=== PATIENT | female | born 1955 | race Caucasian/White ===

== ENCOUNTER 2024-03-24 12:23 | Inpatient (IN) | payer OTHER ==
[2024-03-24] MEDS ORDERED: KETOROLAC 30 MG/ML INJ ONE (13:32)
[2024-03-24] MEDS ORDERED: NA CHLORIDE 0.9% 1,000 ML ONE ×2 (13:32→18:23)
[2024-03-24] MEDS ORDERED: ONDANSETRON 4 MG/2 ML VIAL ONE (13:32)
[2024-03-24 14:23] LABS: Absolute Eosinophils 0.1 K/uL (0-0.5); Absolute Lymphocytes (CBC) 0.6 K/uL (0.7-4.9); Absolute Monocytes 0.4 K/uL (0.1-1.3); Absolute Neutrophil 17.6 K/uL (1.8-8.0); Basophils % 0.1 % (0-1.3); Eosinophils % 0.4 % (0-4.4); Hematocrit 28.6 % (36.0-45.0); Hemoglobin 9.8 g/dL (12.0-15.0); Lymphocytes % 3.1 % (15.3-44.8); MCH 28.9 pg (27.0-35.0); MCHC 34.2 g/dL (32.0-36.0); MCV 84.5 fL (80-100); MPV 8.6 fL (7.6-11.3); Monocytes % 2.3 % (3.3-12.3); Neutrophils % 94.1 % (41.7-73.7); Platelets 235 thou/uL (152-406); RBC Red Blood Cell Count 3.39 M/uL (3.86-4.86)
[2024-03-24 14:27] LABS: Albumin 2.1 g/dL (3.4-5.0); Albumin/Globulin Ratio 0.5 (1.1-1.8); Anion Gap 13.4 mEq/L (5.0-15.0); Bilirubin Total 0.7 mg/dL (0.2-1.0); Globulin 4.1 g/dL (2.3-3.5); PT Prothrombin Time 13.8 SECONDS (9.4-12.5); PTT, Activated Partial Thromb 29.5 SECONDS (24.3-36.9); Potassium 3.4 mEq/L (3.5-5.1); Protein, Total 6.2 g/dL (6.4-8.2); Protime INR 1.32
[2024-03-24 14:29] LABS: Specific Gravity 1.014 (1.005-1.030); Transitional Epithelial <5 /HPF (None Seen); Urine Bacteria 20-50 /HPF (<20); Urine Bilirubin NEGATIVE (Negative); Urine Blood 1+ (Negative); Urine Clarity Extremely Turbid (Clear); Urine Color Yellow (Yellow); Urine Culture Reflex Order REFLEXED; Urine Glucose TRACE (Negative); Urine Ketones NEGATIVE (Negative); Urine Microscopic Reflex YN ORDER UMIC; Urine Mucus Slight /HPF (None Seen); Urine Nitrite NEGATIVE (Negative); Urine Protein 2+ (Negative); Urine Urobilinogen Normal (Normal); Urine WBC >50 /HPF (<5)
[2024-03-24] MEDS ORDERED: CEFTRIAXONE 1000 MG/VIAL ONE (15:19)
--- NOTE | 2024-03-24 15:24 | RAD REPORT ---
EXAMINATION: CT ABDOMEN AND PELVIS WITHOUT CONTRAST CLINICAL INDICATION: Abdominal pain TECHNIQUE: CT abdomen and pelvis was performed, as per department protocol. IV contrast and oral was not administered.Axial, sagittal and coronal reconstructions were obtained. One or more of the following dose reduction techniques were used: Automated exposure control, adjustment of the mA and/o r kV according to the patient size, and/or iterative reconstruction. Unless otherwise specified, incidental findings do not require dedicated imaging follow-up. [id number]. COMPARISON: No prior exam. FINDINGS: The lack of intravenous and oral contrast limits evaluation of solid organs, vessels and bowel. Hepatic cysts. Largest 4.5 cm. Spleen is borderline enlarged Pancreas and adrenals grossly normal. 14 mm fatty lesion left kidney probably an angiomyolipoma. Stranding is present adjacent to the renal pelves and ureters bilaterally. Stranding is present withi n the perirenal spaces. Spondylosis lumbar spine Hysterectomy. No adnexal mass. No evidence of diverticulitis IMPRESSION: Stranding is present adjacent to the renal pelves and ureters bilaterally. Stranding is present withi n the perirenal spaces. These findings are nonspecific but can indicate a genitourinary tract infection
--- NOTE | 2024-03-24 15:45 | ER ---
Nurse's Notes [facility] Name: Anupama Olsen Age: 68 yrs Sex: Female : 1955 Arrival Date: 03/24/2024 Time: 12:23 Bed 13 Private MD: Diagnosis: Pyelonephritis acute;Acute kidney failure, unspecified;Severe sepsis without septic shock Presentation: 03/24 12:41 Chief complaint: On Cipro day 2 for UTI, c/o fever, chills, nausea, and headache today. hb Coronavirus screen: At this time, the client does not indicate any symptoms associated with coronavirus-19. Ebola Screen: No symptoms or risks identified at this time. Initial Sepsis Screen: Does the patient meet any 2 criteria? HR > 90 bpm. No. Patient's initial sepsis screen is negative. Does the patient have a suspected source of infection? No. Patient's initial sepsis screen is negative. Risk Assessment: Do you want to hurt yourself or someone else? Patient reports no desire to harm self or others. Onset of symptoms was March 19, 2024. 12:41 Method Of Arrival: Ambulatory hb 12:41 Acuity: JOE 3 hb Historical: - Allergies: 12:43 No Known Allergies; hb - PMHx: 12:43 Hypertension; hb 12:44 Asthma; hb - PSHx: 12:43 Hysterectomy; hb - Immunization history:: Adult Immunizations up to date. - Infectious Disease History:: Denies. - Social history:: Smoking status: Patient denies any tobacco usage or history of. Screenin:19 [facility] ED Fall Risk Assessment (Adult) History of falling in the last 3 months, kj2 including since admission No falls in past 3 months (0 pts) Confusion or Disorientation No (0 pts) Intoxicated or Sedated No (0 pts) Impaired Gait No (0 pts) Mobility Assist Device Used No (0 pt) Altered Elimination No (0 pt) Score/Fall Risk Level 0 - 2 = Low Risk Maintained a safe environment, Hourly rounding (assess needs \T\ fall precautionary measures) done. Abuse screen: Denies threats or abuse. Denies injuries from another. Nutritional screening: No deficits noted. Tuberculosis screening: No symptoms or risk factors identified. Assessment: 13:18 General: Appears in no apparent distress. uncomfortable, Behavior is calm, cooperative. kj2 Pain: Complains of pain in pelvic Pain currently is 6 out of 10 on a pain scale. Neuro: Level of Consciousness is awake, alert, Oriented to person, place, time, situation. Cardiovascular: Patient's skin is warm and dry. Respiratory: Airway is patent Respiratory effort is even, unlabored. GI: No signs and/or symptoms were reported involving the gastrointestinal system. : No signs and/or symptoms were reported regarding the genitourinary system. 14:17 Reassessment: Patient appears in no apparent distress at this time. Patient and/or kj2 family updated on plan of care and expected duration. Pain level reassessed. Patient is alert, oriented x 3, equal unlabored respirations, skin warm/dry/pink. 15:15 Reassessment: Patient appears in no apparent distress at this time. Patient and/or kj2 family updated on plan of care and expected duration. Pain level reassessed. Patient is alert, oriented x 3, equal unlabored respirations, skin warm/dry/pink. 16:00 Reassessment: Patient appears in no apparent distress at this time. Patient and/or kj2 family updated on plan of care and expected duration. Pain level reassessed. Patient is alert, oriented x 3, equal unlabored respirations, skin warm/dry/pink. 17:00 Reassessment: Patient appears in no apparent distress at this time. Patient and/or kj2 family updated on plan of care and expected duration. Pain level reassessed. Patient is alert, oriented x 3, equal unlabored respirations, skin warm/dry/pink. 18:17 Reassessment: Patient appears in no apparent distress at this time. Patient and/or kj2 family updated on plan of care and expected duration. Pain level reassessed. Patient is alert, oriented x 3, equal unlabored respirations, skin warm/dry/pink. Vital Signs: 12:41 BP 102 / 71; Pulse 91; Resp 16; Temp 99.5(O); Pulse Ox 99% on R/A; Weight 79.83 kg; hb Height 5 ft. 4 in. ; Pain 8/10; 13:30 BP 104 / 72; Pulse 92; Resp 20; Pulse Ox 100% on R/A; kj2 14:30 BP 104 / 76; Pulse 88; Resp 20; Pulse Ox 100% on R/A; kj2 15:15 BP 106 / 60; Pulse 76; Resp 18; Pulse Ox 98% ; kj2 16:00 BP 110 / 74; Pulse 78; Resp 18; Pulse Ox 99% on R/A; kj2 17:00 BP 121 / 74; Pulse 72; Resp 18; Pulse Ox 100% on R/A; kj2 18:16 BP 118 / 71; Pulse 77; Resp 20; Temp 99.9; Pulse Ox 100% ; kj2 12:41 Body Mass Index 30.21 (79.83 kg, 162.56 cm) hb 12:41 Pain Scale: Adult hb ED Course: 12:25 Patient arrived in ED. im 12:34 Carolina Carmona FNP-C is PHCP. kb 12:34 Domenico Rojas MD is Attending Physician. kb 12:43 Triage completed. hb 12:44 Arm band placed on. hb 13:17 Ese Lynch, RN is Primary Nurse. kj2 13:19 Patient has correct armband on for positive identification. Bed in low position. Call kj2 light in reach. Provided Education on: call light. 13:19 No provider procedures requiring assistance completed. kj2 13:45 Inserted saline lock: 20 gauge in left antecubital area, using aseptic technique. Blood kj2 collected. Flushed with 10 mL NS. 14:14 Radiology exam delayed due to lab results not completed at this time. (BUN/Creatinine) nj IV insertion attempt and/or patient not having appropriate IV at this time. 14:14 Blood Culture Adult (2) Sent. kj2 14:14 Lactate w/ 2H reflex if indic. Sent. kj2 14:14 Protime (+inr) Sent. kj2 14:14 Ptt, Activated Sent. kj2 14:55 Abdomen In Process Unspecified. EDMS 15:44 Duane Hammond is Hospitalizing Provider. kb 20:12 Patient admitted, IV remains in place. ha1 Administered Medications: 13:45 Drug: TORadol - Ketorolac IVP 15 mg IVP once Route: IVP; Site: left antecubital; kj2 16:02 Follow up: Response: No adverse reaction kj2 13:45 Drug: Ondansetron IVP 4 mg IVP once; over 2 minutes Route: IVP; Site: left antecubital; kj2 16:01 Follow up: Response: No adverse reaction kj2 13:45 Drug: NS 0.9% IV 1000 ml IV at 1 bolus Per protocol; to be given as a bolus over 60 kj2 minutes Route: IV; Rate: 1 bolus; Site: left antecubital; 16:02 Follow up: IV Status: Completed infusion; IV Intake: 1000ml kj2 15:27 Drug: Rocephin IV 1 grams IV at calculated rate once; Given slow IV push per pharmacy kj2 instructions Route: IV; Rate: calculated rate; Site: left antecubital; 16:01 Follow up: Response: No adverse reaction kj2 19:00 Follow up: Response: No adverse reaction; IV Status: Completed infusion; IV Intake: [id number] Medication: 20:12 VIS not applicable for this client. ha1 Intake: 16:02 IV: 1000ml; Total: 1000ml. kj2 19:00 IV: 50ml; Total: 1050ml. ha1 Outcome: 15:45 Decision to Hospitalize by Provider. kb 20:11 Admitted to Med/surg accompanied by tech, via wheelchair, room 224, with chart, ha 20:11 Condition: stable 20:11 Instructed on the need for admit, Demonstrated understanding of instructions, 20:13 Patient left the ED. ha1 Signatures: Dispatcher [employer] EDMS Carolina Carmona, GRADE SCHOOL TEACHER-C GRADE SCHOOL TEACHER-CkAshley Caballero, RN RN Bryce Brooks Heidy, RN RN ha1 Aydee Gill Krystal, RN RN kj2 Corrections: (The following items were deleted from the chart) 14:44 14:14 To radiology for Abdomen Pelvis W Con+CT.RAD.BRZ. kj2 EDMS
--- NOTE | 2024-03-24 15:45 | EDPHYS ---
Physician Documentation [facility] Name: Anupama Olsen Age: 68 yrs Sex: Female : 1955 Arrival Date: 03/24/2024 Time: 12:23 Bed 13 Private MD: ED Physician Domenico Rojas HPI: 03/24 17:35 This 68 yrs old Female presents to ER via Ambulatory with complaints of Urinary Problem.kb 17:35 Pt is a 68 year old female who presents for dysuria for 7 days with fever, chills, kb flank pain, low blood pressure, nausea and decreased appetite that started 5 days ago. Pt was seen at 4 days ago and started on Macrobid, then spoke with Dr Whitten (PCP) 3 days ago and was put on Cipro. States symptoms are not improving. Reports temp up to 103. . Historical: - Allergies: 12:43 No Known Allergies; hb - PMHx: 12:43 Hypertension; hb 12:44 Asthma; hb - PSHx: 12:43 Hysterectomy; hb - Immunization history:: Adult Immunizations up to date. - Infectious Disease History:: Denies. - Social history:: Smoking status: Patient denies any tobacco usage or history of. ROS: 17:34 Constitutional: As per HPI kb Exam: 16:11 Constitutional: This is a well developed, well nourished patient who is awake, alert, kb and in no acute distress. Head/Face: Normocephalic, atraumatic. ENT: Moist Mucous membranes Cardiovascular: Regular rate Respiratory: Respirations even and unlabored. No increased work of breathing. Talking in full sentences Skin: Warm, dry with normal turgor. Normal color. MS/ Extremity: Pulses equal, no cyanosis. Neurovascular intact. Full, normal range of motion. Neuro: Awake and alert, GCS 15, oriented to person, place, time, and situation. 16:11 Abdomen/GI: Inspection: abdomen appears normal, Bowel sounds: normal, Palpation: soft, in all quadrants, mild abdominal tenderness, in all quadrants, 16:11 Back: CVA tenderness, that is moderate, is noted on the left, 16:12 ECG was reviewed by the Attending Physician. kb Vital Signs: 12:41 BP 102 / 71; Pulse 91; Resp 16; Temp 99.5(O); Pulse Ox 99% on R/A; Weight 79.83 kg; hb Height 5 ft. 4 in. ; Pain 8/10; 13:30 BP 104 / 72; Pulse 92; Resp 20; Pulse Ox 100% on R/A; kj2 14:30 BP 104 / 76; Pulse 88; Resp 20; Pulse Ox 100% on R/A; kj2 15:15 BP 106 / 60; Pulse 76; Resp 18; Pulse Ox 98% ; kj2 16:00 BP 110 / 74; Pulse 78; Resp 18; Pulse Ox 99% on R/A; kj2 17:00 BP 121 / 74; Pulse 72; Resp 18; Pulse Ox 100% on R/A; kj2 18:16 BP 118 / 71; Pulse 77; Resp 20; Temp 99.9; Pulse Ox 100% ; kj2 12:41 Body Mass Index 30.21 (79.83 kg, 162.56 cm) hb 12:41 Pain Scale: Adult hb MDM: 12:34 Medical Screening Exam initiated kb 17:34 Differential diagnosis: UTI, pyelonephritis. Data reviewed: vital signs, nurses notes. kb Consideration of Admission/Observation Patient was admitted/placed on observation. Escalation of care including admission/observation considered. Management of patient was discussed with the following: Hospitalist: Hospitalist team. Pt accepted for admission under Dr Hammond. Historians other than the Patient: Spouse/Significant Other: . Counseling: I had a detailed discussion with the patient and/or guardian regarding the historical points, exam findings, and any diagnostic results supporting the discharge/admit diagnosis, lab results, radiology results, the need for further work-up and treatment in the hospital. ED course: sepsis reevaluation complete. 03/24 12:49 Order name: CBC with Diff; Complete Time: 16:32 kb 03/24 12:49 Order name: CMP; Complete Time: 14:29 kb 03/24 12:49 Order name: Lipase; Complete Time: 14:29 kb 03/24 12:49 Order name: Urinalysis w/ reflexes; Complete Time: 14:30 kb 03/24 12:49 Order name: Blood Culture Adult (2) kb 03/24 12:49 Order name: Lactate w/ 2H reflex if indic.; Complete Time: 14:41 kb 03/24 12:49 Order name: Protime (+inr); Complete Time: 14:29 kb 03/24 12:49 Order name: Ptt, Activated; Complete Time: 14:29 kb 03/24 14:32 Order name: Urine Culture EDMS 03/24 16:31 Order name: Urinalysis w/ reflexes EDMS 03/24 16:31 Order name: Basic Metabolic Panel EDMS 03/24 16:31 Order name: Basic Metabolic Panel EDMS 03/24 16:31 Order name: Basic Metabolic Panel EDMS 03/24 16:31 Order name: Basic Metabolic Panel EDMS 03/24 16:31 Order name: Basic Metabolic Panel EDMS 03/24 16:31 Order name: Basic Metabolic Panel EDMS 03/24 16:31 Order name: CBC with Automated Diff EDMS 03/24 16:31 Order name: CBC with Automated Diff EDMS 03/24 16:31 Order name: CBC with Automated Diff EDMS 03/24 16:31 Order name: CBC with Automated Diff EDMS 03/24 16:31 Order name: Manual Differential; Complete Time: 16:32 EDMS 03/24 16:32 Order name: CBC with Automated Diff EDMS 03/24 16:32 Order name: CBC with Automated Diff EDMS 03/24 16:32 Order name: Magnesium EDMS 03/24 16:32 Order name: Magnesium EDMS 03/24 16:32 Order name: Magnesium EDMS 03/24 16:32 Order name: Magnesium EDMS 03/24 16:32 Order name: Magnesium EDMS 03/24 16:32 Order name: Magnesium EDMS 03/24 16:32 Order name: Phosphorus EDMS 03/24 16:32 Order name: Phosphorus EDMS 03/24 16:32 Order name: Phosphorus EDMS 03/24 16:32 Order name: Phosphorus EDMS 03/24 16:32 Order name: Phosphorus EDMS 03/24 16:32 Order name: Phosphorus EDMS 03/24 14:44 Order name: Abdomen ; Complete Time: 15:26 EDMS 03/24 12:49 Order name: EKG; Complete Time: 12:50 kb 03/24 12:49 Order name: IV Saline Lock; Complete Time: 14:14 kb 03/24 12:49 Order name: Labs collected and sent; Complete Time: 14:15 kb 03/24 12:49 Order name: Cardiac monitoring; Complete Time: 13:48 kb 03/24 12:49 Order name: EKG - Nurse/Tech; Complete Time: 13:48 kb 03/24 12:49 Order name: O2 Per Protocol; Complete Time: 13:48 kb 03/24 12:49 Order name: O2 Sat Monitoring; Complete Time: 13:48 kb EC:12 Rate is 78 beats/min. Rhythm is regular. QRS [place] is Normal. VA interval is normal at kb 186 msec. QRS interval is normal at 90 msec. QT interval is normal at 460 msec. Administered Medications: 13:45 Drug: TORadol - Ketorolac IVP 15 mg IVP once Route: IVP; Site: left antecubital; kj2 16:02 Follow up: Response: No adverse reaction kj2 13:45 Drug: Ondansetron IVP 4 mg IVP once; over 2 minutes Route: IVP; Site: left antecubital; kj2 16:01 Follow up: Response: No adverse reaction kj2 13:45 Drug: NS 0.9% IV 1000 ml IV at 1 bolus Per protocol; to be given as a bolus over 60 kj2 minutes Route: IV; Rate: 1 bolus; Site: left antecubital; 16:02 Follow up: IV Status: Completed infusion; IV Intake: 1000ml kj2 15:27 Drug: Rocephin IV 1 grams IV at calculated rate once; Given slow IV push per pharmacy kj2 instructions Route: IV; Rate: calculated rate; Site: left antecubital; 16:01 Follow up: Response: No adverse reaction kj2 19:00 Follow up: Response: No adverse reaction; IV Status: Completed infusion; IV Intake: [id number] Disposition: 03/25 07:03 Co-signature as Attending Physician, Domenico Rojas MD I reviewed the patient's care rt provided by the Advanced Practice Provider and agree with the diagnosis and treatment plan. Disposition Summary: 03/24/24 15:45 Hospitalization Ordered Notes: Hospitalization Status: Inpatient Admission kb Provider: Duane Hammond Location: Telemetry/MedSurg (Inpatient) kb Condition: Stable kb Problem: new kb Symptoms: are unchanged kb Bed/Room Type: Standard kb Room Assignment: 224(03/24/24 18:55) eb Diagnosis - Pyelonephritis acute kb - Acute kidney failure, unspecified kb - Severe sepsis without septic shock kb Forms: - Medication Reconciliation Form kb - SBAR form kb - Leadership Thank You Letter kb Signatures: Dispatcher [employer] EDMS Carolina Carmona, EQUIPMENT TESTER-C EQUIPMENT TESTER-Ashley Ocampo, RN RN Jacqueline Prater Ryan, MD MD rt Ese Lynch RN RN kj2 La Castro RN ha1 Corrections: (The following items were deleted from the chart) 03/24 14:44 12:49 Abdomen Pelvis W Con+CT.RAD.BRZ ordered. EDMS EDMS 18:55 15:45 kb carol
[2024-03-24 16:31] LABS: Band Neutrophils 14 % (0-1); Blood Morphology Comment NOT SEEN (NOT SEEN); Differential Total Cells Count 100; Lymphocytes 4 % (15-42); Monocytes 2 % (0-10); Platelet Estimate ADEQ; Segmented Neutrophils 80 % (40-80); Toxic Granulation PRESENT
--- NOTE | 2024-03-24 16:40 | P.HP ---
Certification for Inpatient Patient admitted to: Inpatient With expected LOS: >2 Midnights Practitioner: I am a practitioner with admitting privileges, knowledge of patient current condition, hospital course, and medical plan of care. Services: Services provided to patient in accordance with Admission requirements found in Title 42 Section 412.3 of the Code of Federal Regulations Patient History Date of Service: 03/24/24 Reason for admission: Right pyelonephritis History of Present Illness: Anupama Olsen is a 68 year old female with Pmhx HTN, HLD, and asthma who presents to the ED with complaints of dysuria and abdominal pain since last week. She tried nitrofurantoin and ciprofloxacin from her doctor and an urgent care with no relief. Laboratory evaluation WBC 18.7, H&H 9.8/28.6, sodium 132, potassium 3.4, BUN/creatinine 41/1 3.03, GFR 16, serum glucose 166, UA reveals infectious process. Initial vitals Stranding is present adjacent to the renal pelves and ureters bilaterally. Stranding is present within the perirenal spaces. These findings are nonspecific but can indicate a genitourinary tract infection CT abdomen pelvis reports "Stranding is present adjacent to the renal pelves and ureters bilaterally. Stranding is present within the perirenal spaces. These findings are nonspecific but can indicate a genitourinary tract infection." Anupama will be admitted to hospitalist service for further treatment of right pyelonephritis.. - Past Medical/Surgical History -: Asthma -: Hypertension -: Sleep apnea Past Surgical History: Reviewed- Non-Contributory - Family History Family History: Reviewed- Non-Contributory - Social History Smoking Status: Never smoker Alcohol use: No CD- Drugs: No Review of Systems Other: per HPI Physical Examination - Physical Exam General: Alert, In no apparent distress, Oriented x3 Neck: Supple, JVD not distended Respiratory: Clear to auscultation bilaterally, Normal air movement Cardiovascular: No edema Capillary refill: <2 Seconds Gastrointestinal: Normal bowel sounds, Soft and benign, Tenderness Musculoskeletal: No clubbing Integumentary: No rashes Neurological: Normal speech, Normal tone - Studies Laboratory Data (last 24 hrs) 03/24/24 03/24/24 03/24/24 13:50 13:50 13:50 WBC 18.70 H Hgb 9.8 L Hct 28.6 L Plt Count 235 PT 13.8 H INR 1.32 APTT 29.5 Sodium 132 L Potassium 3.4 L BUN 41 H Creatinine 3.03 H Glucose 166 H Total Bilirubin 0.7 AST 15 ALT 17 Alkaline Phosphatase 125 H Lipase 9 L Assessment and Plan - Plan Assessment and plan Sepsis secondary to right pyelonephritis -Sepsis criteria WBC 18, heart rate 91, UTI -CT abd/pelvis reports "Stranding is present adjacent to the renal pelves and ureters bilaterally. Stranding is present within the perirenal spaces. These findings are nonspecific but can indicate a genitourinary tract infection." -Sepsis reassessment complete -Rocephin given in the AM and will continue on the floor -Follow urine culture -2 L normal saline given in the ED, 2 L IV fluids on the floor KERMIT -BUN/creatinine 41/3.03, GFR 16 -IV fluids -Monitor labs in the a.m. HTN Asthma -Continue home medications DVT PPx heparin Full code LOS 2 days Discharge Plan: Home Plan to discharge in: 48 Hours - Advance Directives Does patient have a Living Will: No Does patient have a Durable POA for Healthcare: No
[2024-03-24] MEDS: HEPARIN 5000 UNIT/ML 1 ML VIAL SQ SCH (17:00)
[2024-03-24] MEDS: NA CHLORIDE 0.9% 1,000 ML IV SCH (17:00)
[2024-03-24] MEDS ORDERED: ACETAMINOPHEN 325 MG TABLET ONE (18:23)
[2024-03-24] MEDS ORDERED: HEPARIN 5000 UNIT/ML 1 ML VIAL ONE (18:23)
[2024-03-24] MEDS: ACETAMINOPHEN 325 MG TABLET PO PRN (18:39)
[2024-03-25 09:04] LABS: Absolute Eosinophils 0.1 K/uL (0-0.5); Absolute Lymphocytes (CBC) 0.9 K/uL (0.7-4.9); Absolute Monocytes 0.3 K/uL (0.1-1.3); Absolute Neutrophil 10.3 K/uL (1.8-8.0); Basophils % 0.1 % (0-1.3); Eosinophils % 0.7 % (0-4.4); Hematocrit 24.4 % (36.0-45.0); Hemoglobin 8.6 g/dL (12.0-15.0); Lymphocytes % 7.4 % (15.3-44.8); MCH 29.8 pg (27.0-35.0); MCHC 35.3 g/dL (32.0-36.0); MCV 84.3 fL (80-100); MPV 8.8 fL (7.6-11.3); Monocytes % 2.9 % (3.3-12.3); Neutrophils % 88.9 % (41.7-73.7); Platelets 195 thou/uL (152-406); RBC Red Blood Cell Count 2.89 M/uL (3.86-4.86); Red Cell Distribution Width 15.3 % (12.1-15.2)
[2024-03-25 09:24] LABS: Magnesium 1.6 mg/dL (1.6-2.4); Phosphorus 3.6 mg/dL (2.5-4.9)
[2024-03-25] MEDS: CEFTRIAXONE 1,000 MG in NA CHLORIDE 0.9% 50 ML IVPB SCH (09:58)
--- NOTE | 2024-03-25 17:17 | P.PN ---
Date of Service: 03/25/24 Subjective Awake, abdominal pain resolving Fever this afternoon, WBC decreased this morning ROS 10 point ROS as noted above, otherwise negative Physical Exam General: Alert and Oriented x3, NAD Neck: Supple, JVD not distended Respiratory: Clear to auscultation bilaterally, Normal air movement Cardiovascular: No edema Capillary refill: <2 Seconds Gastrointestinal: Active bowel sounds, Soft on palpation, Tenderness-improving Musculoskeletal: No clubbing Integumentary: No rashes Neurological: Normal speech, Normal tone Vitals Reviewed Problem list Sepsis secondary to right pyelonephritis Leukocytosis- improved Febrile KERMIT HTN Asthma 40 mm fatty lesion left kidney, suspect angiomyolipoma Hepatic cyst Spondylosis lumbar spine Assessment and Plan Sepsis secondary to right pyelonephritis Febrile Leukocytosis- improved -Sepsis criteria WBC 18, heart rate 91, UTI, now with temp 101.2 -CT abd/pelvis reports "Stranding is present adjacent to the renal pelves and ureters bilaterally. Stranding is present within the perirenal spaces. These findings are nonspecific but can indicate a genitourinary tract infection." -Febrile this afternoon, redraw lactic acid -Sepsis reassessment complete -Continue Rocephin -Follow urine culture-no growth to date -Blood culture no growth to date -2 L normal saline given in the ED, 2 L IV fluids on the floor ordered to start last night -additional normal saline KERMIT -BUN/creatinine 52/3.13, GFR 16 -IV fluids -Monitor labs in the a.m. HTN Asthma -Continue home medications 40 mm fatty lesion left kidney, suspect angiomyolipoma Hepatic cyst Spondylosis lumbar spine -Follow-up outpatient DVT PPx heparin Full code LOS 2 days Discharge Plan: Home Plan to discharge in: 48 Hours
[2024-03-25] MEDS: VANCOMYCIN 1 GM in NA CHLORIDE 0.9% 250 ML IVPB SCH (18:09)
[2024-03-25] MEDS: VANCOMYCIN 1.5 GM in NA CHLORIDE 0.9% 500 ML IVPB ONE (19:00)
[2024-03-25] MEDS: Meropenem 1,000 MG in NA CHLORIDE 0.9% 100 ML IV SCH (21:14)
[2024-03-25] MEDS: POTASSIUM 25 MEQ EFFERV TAB PO ONE (21:15)
[2024-03-25] MEDS: VANCOMYCIN 500 MG/VIAL ONE (22:01)
[2024-03-25] MEDS: VANCOMYCIN 1 GM/VIAL ONE (22:01)
[2024-03-25] MEDS: NA CHLORIDE 0.9% 500 ML ONE (22:03)
[2024-03-26] MEDS: NA CHLORIDE 0.9% 1,000 ML IV SCH (02:56)
[2024-03-26 08:44] LABS: Absolute Eosinophils 0.1 K/uL (0-0.5); Absolute Lymphocytes (CBC) 0.9 K/uL (0.7-4.9); Absolute Monocytes 0.5 K/uL (0.1-1.3); Absolute Neutrophil 4.7 K/uL (1.8-8.0); Basophils % 0.2 % (0-1.3); Eosinophils % 1.4 % (0-4.4); Hematocrit 24.7 % (36.0-45.0); Hemoglobin 8.7 g/dL (12.0-15.0); Lymphocytes % 15.3 % (15.3-44.8); MCH 29.4 pg (27.0-35.0); MCV 83.9 fL (80-100); MPV 7.8 fL (7.6-11.3); Monocytes % 7.7 % (3.3-12.3); Neutrophils % 75.4 % (41.7-73.7); Platelets 236 thou/uL (152-406); RBC Red Blood Cell Count 2.95 M/uL (3.86-4.86); Red Cell Distribution Width 15.4 % (12.1-15.2)
[2024-03-26 09:02] LABS: Anion Gap 10.6 mEq/L (5.0-15.0); Magnesium 1.9 mg/dL (1.6-2.4); Phosphorus 4.3 mg/dL (2.5-4.9); Potassium 3.6 mEq/L (3.5-5.1)
[2024-03-26] MEDS: FLUCONAZOLE 200mg IVPB 200 MG/100 ML BAG IV SCH (12:13)
--- NOTE | 2024-03-26 12:29 | RAD REPORT ---
EXAM: Chest Single View HISTORY: shortness of breath COMPARISON: 08/18/2022 FINDINGS: LUNGS/PLEURA: The lungs are clear. No pleural effusions or pneumothorax. No pulmonary edema. MEDIASTINUM: The mediastinal silhouette is within normal limits. CARDIAC: The cardiac silhouette is within normal limits. UPPER ABDOMEN: No significant abnormality. BONES: No acute abnormality. LINES/TUBES/OTHER: N/A IMPRESSION: No evidence of acute cardiopulmonary disease.
--- NOTE | 2024-03-26 15:36 | P.PN ---
Date of Service: 03/26/24 Subjective Awake and ambulating in her room remains febrile c/o shortness of breath, CXR with no acute findings on room air D-dimer pending ROS 10 point ROS as noted above, otherwise negative Physical Exam General: AAO x3, NAD Neck: Supple, JVD not distended Respiratory: Clear to auscultation bilaterally, Normal air movement, on RA Cardiovascular: No edema Capillary refill: <2 Seconds Gastrointestinal: normal Active bowel sounds, Soft on palpation Musculoskeletal: No clubbing Integumentary: No rashes Neurological: Normal speech, Normal tone Vitals Reviewed Problem list Sepsis secondary to right pyelonephritis Leukocytosis- improved Febrile KERMIT HTN Asthma 40 mm fatty lesion left kidney, suspect angiomyolipoma Hepatic cyst Spondylosis lumbar spine Assessment and Plan Sepsis secondary to right pyelonephritis Febrile Leukocytosis- improved -Sepsis criteria WBC 18, heart rate 91, UTI, now with temp 101.2 -CT abd/pelvis reports "Stranding is present adjacent to the renal pelves and ureters bilaterally. Stranding is present within the perirenal spaces. These findings are nonspecific but can indicate a genitourinary tract infection." -Febrile this this morning , redraw lactic acid 0.9 -Sepsis reassessment complete - Rocephin stopped, started merrem and Vancomycin 03/25, added diflucan 03/26 -Follow urine culture-no growth to date -Blood culture no growth to date -2 L normal saline given in the ED, 2 L IV fluids on the floor ordered to start last night -continue normal saline today KERMIT -BUN/creatinine 53/2.55, GFR 20 -IV fluids -Monitor labs in the a.m. -consulted Nephrology HTN Asthma -Continue home medications 40 mm fatty lesion left kidney, suspect angiomyolipoma Hepatic cyst Spondylosis lumbar spine -Follow-up outpatient DVT PPx heparin Full code LOS 2 days Discharge Plan: Home Plan to discharge in: 48 Hours <Dianne Tenroio - Last Filed: 03/26/24 15:37> Patient seen and examined, plan of care discussed with nephrology. Patient experience intermittent fever. Urine culture did not show any growth. Blood cultures negative. Patient took antibiotics before presentation. Given intermittent fever on Rocephin, antibiotics changed to IV meropenem and vancomycin. Leukocytosis resolved, KERMIT improved. Monitor for clinical improvement. Monitor CBC and renal function. <molly foss - Last Filed: 03/26/24 19:28>
[2024-03-26 17:04] LABS: SARS-CoV-2 Antigen CONTROL BLUE LINE VIS/BG OK
[2024-03-26 17:05] LABS: SARS-CoV-2 Antigen Rapid Res Negative (Negative)
[2024-03-26] MEDS ORDERED: HEPARIN/D5W 25,000 UNIT/500 ML BAG IV SCH (18:00)
[2024-03-26] MEDS: POTASSIUM CL SA 10 MEQ TAB PO ONE (21:57)
[2024-03-27 01:06] LABS: PT Prothrombin Time 12.8 SECONDS (9.4-12.5); Protime INR 1.22
--- NOTE | 2024-03-27 04:41 | CON ---
Date of Consultation: 03/26/2024 History Of Present Illness: The patient was admitted for right pyelonephritis. She was found to have acute kidney injury. She remains nonoliguric. Nephrology consultation is requested for acute kidney injury. The patient is a 68-year-old woman with past medical history of hypertension, hyperlipidemia, asthma, who presented to emergency department with complaints of dysuria and abdominal pain at least for one week prior to admission. She took nitrofurantoin and ciprofloxacin, and she was seen by her physician and subsequently Urgent Care, with no improvement of her symptoms. On arrival to emergency room, she was complaining of high-grade fever, back pain. She denied hematuria, incomplete voiding. Blood work showed BUN of 41, creatinine 3.03, GFR 16, serum glucose 166. Urinalysis revealed leukocyturia. Findings of the CT scan showed workup consistent with pyelonephritis. The patient denies history of kidney stones, hematuria. She had similar episodes of pyelonephritis at least 18 to 20 years ago. Past Medical History: Asthma, hypertension, sleep apnea. Family History: Noncontributory. Past Surgical History: Noncontributory. Social History: Never smoker. Alcohol, denies. Drugs, denies. Review of Systems: Constitutional: Had fever and chills. Eyes: Denies vision changes. Ears, Nose, Mouth, and Throat: Denies sore throat, earache. Respiratory: Denies PND, orthopnea. Cardiovascular: Denies syncope, palpitation. GI: Denies nausea, vomiting, melena, hematemesis. : She has back pain, and she denies hematuria, although she had dysuria. All other systems reviewed and all are negative. Physical Examination: General: Not in acute distress. Alert and oriented x3. Normal affect. Neck: Supple. No JVD. No bruits. Respiratory: Clear to auscultation bilaterally. Normal air movement. Cardiovascular: S1, S2. No pericardial friction rub. Abdomen: Soft, benign, nontender. Extremities: No edema. No clubbing. No cyanosis. Laboratory Work: WBC 18.7, hemoglobin 9.8, platelet count 235,000, INR 1.32, PT 13.8, APTT 29.5. Sodium 132, potassium 3.4, BUN 41, creatinine 3.03, glucose 166, AST 16, ALT 17, lipase 9, and AP 125. Impression And Plan: 1. Sepsis. WBC 18, heart rate 91. The patient has urinary tract infection. CT scan of abdomen and pelvis without contrast showed stranding present and adjacent to the renal pelvis and ureters bilaterally. Continue antibiotics. The patient will need a Urology evaluation when she completes treatment for urinary tract infection. 2. Sepsis. Monitor blood pressure closely. Continue broad-spectrum antibiotics and re-evaluate urine culture and blood cultures. 3. Acute kidney injury. The patient was treated with IV fluids and received bolus of 2 L normal saline in the emergency room. Continue to monitor renal panel and blood pressure. Continue IV fluids for acute kidney injury and fluid management for sepsis EB/MODL Voice ID: [id number] Report ID: [id number] MTDD
[2024-03-27 06:56] LABS: Absolute Eosinophils 0.1 K/uL (0-0.5); Absolute Lymphocytes (CBC) 1.2 K/uL (0.7-4.9); Absolute Monocytes 0.7 K/uL (0.1-1.3); Absolute Neutrophil 4.1 K/uL (1.8-8.0); Basophils % 0.4 % (0-1.3); Eosinophils % 1.9 % (0-4.4); Hematocrit 25.1 % (36.0-45.0); Hemoglobin 8.6 g/dL (12.0-15.0); Lymphocytes % 18.9 % (15.3-44.8); MCHC 34.1 g/dL (32.0-36.0); MPV 7.9 fL (7.6-11.3); Monocytes % 11.1 % (3.3-12.3); Neutrophils % 67.7 % (41.7-73.7); Platelets 223 thou/uL (152-406); RBC Red Blood Cell Count 2.95 M/uL (3.86-4.86); Red Cell Distribution Width 15.7 % (12.1-15.2)
[2024-03-27 07:12] LABS: Anion Gap 11.5 mEq/L (5.0-15.0); Magnesium 1.8 mg/dL (1.6-2.4); Phosphorus 3.7 mg/dL (2.5-4.9); Potassium 3.5 mEq/L (3.5-5.1)
[2024-03-27 07:51] LABS: Specific Gravity 1.008 (1.005-1.030); Sqamous Epithelial None Seen /HPF (None Seen); Urine Bacteria None Seen /HPF (<20); Urine Bilirubin NEGATIVE (Negative); Urine Blood Trace (Negative); Urine Clarity Clear (Clear); Urine Color Colorless (Yellow); Urine Culture Reflex Order REFLEXED; Urine Glucose NEGATIVE (Negative); Urine Ketones NEGATIVE (Negative); Urine Microscopic Reflex YN ORDER UMIC; Urine Nitrite NEGATIVE (Negative); Urine Protein NEGATIVE (Negative); Urine RBC <5 /HPF (None Seen); Urine Urobilinogen Normal (Normal)
--- NOTE | 2024-03-27 09:55 | P.PN ---
Date of Service: 03/27/24 Subjective febrile yesterday and c/o nausea this morning, nausea is less, tolerating heparin gtt VQ scan negative for PE afebrile overnight will continue IV antibiotics ROS 10 point ROS as noted above, otherwise negative Physical Exam General: Alert and oriented x4, NAD Neck: Supple, JVD not distended Respiratory: Clear to auscultation bilaterally, Normal air movement, on RA Cardiovascular: No edema Capillary refill: <2 Seconds Gastrointestinal: normal Active bowel sounds, Soft on palpation, nontender Musculoskeletal: No clubbing Integumentary: No rashes Neurological: Normal speech, Normal tone Vitals Reviewed Problem list Sepsis secondary to right pyelonephritis Leukocytosis- improved Febrile KERMIT HTN Asthma 40 mm fatty lesion left kidney, suspect angiomyolipoma Hepatic cyst Spondylosis lumbar spine Assessment and Plan Sepsis secondary to right pyelonephritis Febrile Leukocytosis- improved -Sepsis criteria WBC 18, heart rate 91, UTI, now with temp 101.2 -CT abd/pelvis reports "Stranding is present adjacent to the renal pelves and ureters bilaterally. Stranding is present within the perirenal spaces. These findings are nonspecific but can indicate a genitourinary tract infection." -Febrile this this morning , redraw lactic acid 0.9 -Sepsis reassessment complete - Rocephin stopped, started merrem 03/25, started diflucan 03/26, stopped vanc 03/27 -Follow urine culture-no growth to date -Blood culture no growth to date -2 L normal saline given in the ED, 2 L IV fluids on the floor ordered to start last night -continue normal saline today Elevated Ddimer -heparin gtt started -VQ scan negative for PE KERMIT- improving -BUN/creatinine 45/1.93, GFR 28 -IV fluids -Monitor labs in the a.m. -consulted Nephrology HTN Asthma -Continue home medications -nebulizer treatment added 40 mm fatty lesion left kidney, suspect angiomyolipoma Hepatic cyst Spondylosis lumbar spine -Follow-up outpatient DVT PPx heparin Full code LOS 2 days Discharge Plan: Home Plan to discharge in: 48 Hours
[2024-03-27] MEDS: POTASSIUM CL SA 10 MEQ TAB PO ONE (10:14)
--- NOTE | 2024-03-27 13:15 | RAD REPORT ---
EXAMINATION: NUCLEAR MEDICINE VENTILATION PERFUSION SCAN XENON CLINICAL INDICATION: . elevated D-dimer shortness of breath TECHNIQUE: Ventilation images after inhaled radiopharmaceutical obtained in multiple projections.. Pe rfusion images were obtained in multiple projections after intravenous injection of Tc-99m MAA. RADIOPHARMACEUTICALS: 18.1 mCi of Xenon-133 and 6.6 mCi intravenous Tc-99m MAA. COMPARISON: Examination correlated with recent chest radiograph. FINDINGS: Homogeneous radiotracer activity ventilation and perfusion images. No segmental/lobar perfusion defects IMPRESSION: No evidence of a pulmonary embolus
[2024-03-27] MEDS: NEBIVOLOL HCL 5 MG TAB PO SCH (13:16)
[2024-03-27] MEDS: ESCITALOPRAM 20 MG TAB PO SCH (13:17)
[2024-03-27] MEDS: PANTOPRAZOLE 40MG TABLET PO SCH (13:17)
[2024-03-27] MEDS ORDERED: ZOLPIDEM TARTRATE 5 MG TABLET PO PRN (21:00)
[2024-03-27] MEDS: ALBUTEROL 2.5 MG/3 ML NEB SOL ONE (21:18)
[2024-03-27] MEDS: ATORVASTATIN 40 MG TAB PO SCH (21:28)
[2024-03-27] MEDS: ALBUTEROL 2.5 MG/3 ML NEB SOL NEB ONE (21:50)
[2024-03-27] MEDS: VANCOMYCIN 1.5 GM in NA CHLORIDE 0.9% 500 ML IVPB SCH (23:05)
[2024-03-28] MEDS: IPRATROPIUM BROM 0.5MG/2.5ML NEB PRN (00:09)
--- NOTE | 2024-03-28 03:34 | PN ---
Date of Progress Note: 03/27/2024 Subjective: The patient is a 68-year-old woman with past medical history of hypertension, hyperlipid emia, asthma, who presented to emergency department with complaints of dysuria and abdominal pain as well as lower back pain. She was treated outpatient for urinary tract infection and took nitrofurant oin and ciprofloxacin, although she did not respond to treatment. She [facility] and because of high-grade fever, she decided to come to emergency room. Blood work done in the emergency room showed BUN of 41, creatinine 3.03. GFR 16. Urinalysis showed leukocyturia consi stent with urinary tract infection. CT scan of the abdomen and pelvis without contrast showed change s consistent with pyelonephritis. The patient denies history of kidney stones, hematuria. Review of Systems: Denies chest pain, palpitation. Physical Examination: Lungs: Clear to auscultation bilaterally. Heart: S1, S2. Abdomen: Soft, benign. Extremities: No edema. Impression And Plan: 1.Sepsis. WBC is 18. Heart rate 91. The patient has urinary tract infection, pyelonephritis. CT scan of the abdomen and pelvis without contrast showed stranding present, adjacent to the renal pelvi s and ureters bilaterally. Continue antibiotics. 2.Sepsis. Monitor blood culture and urine culture. Continue broad-spectrum antibiotics. 3.Acute kidney injury in the setting of pyelonephritis. Continue IV fluids. The patient received b olus of 2 L normal saline in the emergency room. Monitor electrolytes closely and adjust antibiotic according to the culture results. 4.Hypertension. Continue blood pressure medication. Avoid RORY inhibitor and avoid angiotensin receptor blockers due to acute kidney injury. EB/MODL Voice ID: [id number] Report ID: [id number]
[2024-03-28 07:06] LABS: Absolute Eosinophils 0.1 K/uL (0-0.5); Absolute Lymphocytes (CBC) 1.8 K/uL (0.7-4.9); Absolute Monocytes 0.9 K/uL (0.1-1.3); Absolute Neutrophil 5.6 K/uL (1.8-8.0); Basophils % 0.3 % (0-1.3); Eosinophils % 1.7 % (0-4.4); Hematocrit 24.8 % (36.0-45.0); Hemoglobin 8.5 g/dL (12.0-15.0); Lymphocytes % 21.1 % (15.3-44.8); MCH 29.3 pg (27.0-35.0); MCHC 34.2 g/dL (32.0-36.0); MCV 85.7 fL (80-100); MPV 7.5 fL (7.6-11.3); Monocytes % 10.7 % (3.3-12.3); Neutrophils % 66.2 % (41.7-73.7); Platelets 298 thou/uL (152-406); Red Cell Distribution Width 15.8 % (12.1-15.2)
[2024-03-28 07:18] LABS: Anion Gap 8.7 mEq/L (5.0-15.0); Magnesium 1.8 mg/dL (1.6-2.4); Phosphorus 3.6 mg/dL (2.5-4.9); Potassium 3.7 mEq/L (3.5-5.1)
[2024-03-28 08:03] LABS: Band Neutrophils 3 % (0-1); Differential Total Cells Count 100; Eosinophils 2 % (0-3); Lymphocytes 17 % (15-42); Monocytes 8 % (0-10); Segmented Neutrophils 70 % (40-80)
[2024-03-28 08:04] LABS: Blood Morphology Comment NOT SEEN (NOT SEEN); Platelet Estimate ADEQ
[2024-03-28] MEDS: EZETIMIBE 10 MG TAB PO SCH (09:19)
[2024-03-28] MEDS: POTASSIUM CL SA 10 MEQ TAB PO ONE (09:19)
[2024-03-28] MEDS: ONDANSETRON 4 MG/2 ML VIAL IV PRN (10:58)
[2024-03-28] MEDS: MAGNESIUM SULFATE 1 gm IVPB 1 GM/100 ML BAG IV ONE (14:51)
--- NOTE | 2024-03-28 15:02 | P.PN ---
Date of Service: 03/28/24 Subjective Symptoms improving Had some wheezing overnight which resolved with nebulizer treatment Denies fevers, white blood cell count improving ROS 10 point ROS as noted above, otherwise negative Physical Exam General: Alert and oriented x4, NAD Neck: Supple, JVD not distended Respiratory: Clear to auscultation bilaterally, Normal air movement, on RA Cardiovascular: No edema Capillary refill: <2 Seconds Gastrointestinal: normal Active bowel sounds, Soft on palpation, nontender Musculoskeletal: No clubbing Integumentary: No rashes Neurological: Normal speech, Normal tone Vitals Reviewed Problem list Sepsis secondary to right pyelonephritis Leukocytosis- improved Febrile KERMIT HTN Asthma 40 mm fatty lesion left kidney, suspect angiomyolipoma Hepatic cyst Spondylosis lumbar spine Plan Sepsis secondary to right pyelonephritis Febrile Leukocytosis- improved -CT abd/pelvis reports "Stranding is present adjacent to the renal pelves and ureters bilaterally. Stranding is present within the perirenal spaces. These findings are nonspecific but can indicate a genitourinary tract infection." - Rocephin stopped, started merrem 03/25, started diflucan 03/26, stopped vanc 03/27 -Follow urine culture-no growth to date -Blood culture no growth to date -D/W infectious disease recommends 2 weeks of IV meropenem -Will make arrangements for home IV abx/PICC Elevated Ddimer -VQ scan negative for PE KERMIT- improving -IV fluids -Monitor labs in the a.m. -consulted Nephrology HTN Asthma -Continue home medications -nebulizer treatment added 40 mm fatty lesion left kidney, suspect angiomyolipoma Hepatic cyst Spondylosis lumbar spine -Follow-up outpatient DVT PPx SQ LOVENOX Full code LOS 2 days Discharge Plan: Home Plan to discharge in: 48 Hours
--- NOTE | 2024-03-28 15:46 | CON ---
History Of Present Illness: This is a 68-year-old female. I was consulted for pyelonephritis. The patient has significant past medical history of asthma, hypertension, hyperlipidemia, coming to the e mergency room with burning urination and abdominal pain for 1 week. She has taken nitrofurantoin and Cipro from an urgent care facility. CT scan showed the patient has stranding adjacent to renal pelv is and ureters bilaterally. Continued to have nausea and vomiting. Otherwise, feels better. Past Medical History: As per HPI. Social History: Nonsmoker, nondrinker. Family History: Noncontributory. Medications: Fluconazole, meropenem. See MARs for other medications. Allergies: NO KNOWN DRUG ALLERGIES. Review of Systems: A 10-point review was performed. Physical Examination: General: This is a 68-year-old female, lying in bed, not in any acute cardiopulmonary distress. Vital Signs: Temperature 98.6, pulse 59, respirations 18, blood pressure 137/68. HEENT: Unremarkable. Neck: Supple. Lungs: Basal crackles. Heart: S1, S2. Regular. Abdomen: Soft. Bowel sounds present. Extremities: Trace edema. Laboratory Data: Shows WBC 8.5, down from 18.7; hemoglobin 8.5; platelets are 298. Micro data chemi stry shows BUN of 30, creatinine 1.3. Urinalysis shows WBC more than 50, now down to 10 to 20. Micr o data shows mixed coby in the urine. Blood cultures are negative. Assessment And Plan: Pyelonephritis in a 68-year-old female with failure of outpatient therapy. Rec ommend to continue IV treatment for 14 days and repeat UA and follow up with the Urology team will be recommended for this patient to rule out any anatomical obstructive pattern causing those pyelonephr itis. At this time, the patient's nausea, vomiting to be addressed by medical team. Leukocytosis hurst s improved. Anemia of chronic disease, renal insufficiency. Continue to monitor signs of infection with WBC and fever trends. Thank you for consult. NF/MODL Voice ID: [id number] Report ID: [id number]
[2024-03-28] MEDS: ALBUTEROL 2.5 MG/3 ML NEB SOL NEB PRN (16:55)
--- NOTE | 2024-03-28 18:26 | PN ---
Date of Progress Note: 03/28/2024 Subjective: The patient was admitted with acute kidney injury secondary to toxic ATN secondary to UT I, pyelonephritis. Obstructive uropathy has been ruled out. The patient also started hydration, on antibiotic. Kidney function started being improved. Physical Examination: Vital Signs: Blood pressure 134/74, pulse of 56, afebrile. Chest: Clear to auscultation. Heart: S1, S2. Regular. Abdomen: Soft, nontender. Extremities: No edema. Neurologic: Alert. No focality. Laboratory Data: Hemoglobin 8.5, sodium 140, potassium 3.7, bicarb 21, BUN 30, creatinine 1.3, GFR 4 3, calcium 7.9, phosphorus 3.6, magnesium 1.8. Current Medications: The patient on, include albuterol, fluconazole, meropenem 1 g b.i.d., Zetia, By stolic, atorvastatin, Ambien, Zofran, pantoprazole, IV fluid 100 per hour. Laboratory Data: Sodium 140, potassium 3.7, bicarb 21, BUN 10, creatinine 1.3, trending down. GFR 4 3, calcium 7.9, phosphorus 3.6, magnesium 1.8, hemoglobin 8.5, WBC 8.5. Assessment And Plan: 1.Acute kidney injury secondary to toxic acute tubular necrosis, poor perfusion acute tubular necros is secondary to urinary tract infection, recovered. Patient looked to me on the normal volume side. I am going to go ahead and discontinue IV fluid. 2.Urinary tract infection. Obstructive uropathy has been ruled out. Continue current antibiotic. We will follow up culture. 3.Hypomagnesemia, hypokalemia. We will supplement. 4.Hypertension, controlled, optimal. MA/MODL Voice ID: [id number] Report ID: [id number]
[2024-03-29 05:38] LABS: Absolute Eosinophils 0.2 K/uL (0-0.5); Absolute Lymphocytes (CBC) 1.9 K/uL (0.7-4.9); Absolute Monocytes 0.8 K/uL (0.1-1.3); Absolute Neutrophil 5.9 K/uL (1.8-8.0); Basophils % 0.3 % (0-1.3); Eosinophils % 2.3 % (0-4.4); Hematocrit 25.2 % (36.0-45.0); Hemoglobin 8.6 g/dL (12.0-15.0); Lymphocytes % 21.9 % (15.3-44.8); MCH 28.9 pg (27.0-35.0); MPV 8.3 fL (7.6-11.3); Monocytes % 9.2 % (3.3-12.3); Neutrophils % 66.3 % (41.7-73.7); Platelets 271 thou/uL (152-406); RBC Red Blood Cell Count 2.97 M/uL (3.86-4.86); Red Cell Distribution Width 15.6 % (12.1-15.2)
[2024-03-29 06:10] LABS: Anion Gap 10.3 mEq/L (5.0-15.0); Ferritin 459.3 ng/mL (8-252); Phosphorus 3.2 mg/dL (2.5-4.9); Potassium 4.3 mEq/L (3.5-5.1)
[2024-03-29] MEDS: Mupirocin NASAL 2 APPL/1 GM TUBE NAS SCH (11:50)
[2024-03-29] MEDS: SOD FERRIC GLUC COMPLX/SUCROSE 250 MG in NA CHLORIDE 0.9% 250 ML IV SCH (12:45)
--- NOTE | 2024-03-29 12:46 | EKG ---
Test Date: 2024-03-24 Test Time: 15:46:14 [employer]: MALLORY MEASUREMENT RESULTS: Intervals: Rate: 78 CO: 186 QRSD: 90 QT: 404 QTc: 460 [place]: P: 25 CO: 186 QRS: 50 T: 34 INTERPRETIVE STATEMENTS: Normal sinus rhythm Nonspecific T wave abnormality Abnormal ECG No previous ECG available for comparison Electronically Signed On 03-29-24 12:37:18 [employer] by Chacorta Aceves
--- NOTE | 2024-03-29 15:47 | P.PN ---
Date of Service: 03/29/24 Subjective Symptoms improving Acute events overnight ROS 10 point ROS as noted above, otherwise negative Physical Exam General: Alert and oriented x4, NAD Neck: Supple, JVD not distended Respiratory: Clear to auscultation bilaterally, Normal air movement, on RA Cardiovascular: No edema Capillary refill: <2 Seconds Gastrointestinal: normal Active bowel sounds, Soft on palpation, nontender Musculoskeletal: No clubbing Integumentary: No rashes Neurological: Normal speech, Normal tone Vitals Reviewed Problem list Sepsis secondary to right pyelonephritis Leukocytosis- improved Febrile KERMIT HTN Asthma 40 mm fatty lesion left kidney, suspect angiomyolipoma Hepatic cyst Spondylosis lumbar spine Plan Sepsis secondary to right pyelonephritis Febrile Leukocytosis- improved -CT abd/pelvis reports "Stranding is present adjacent to the renal pelves and ureters bilaterally. Stranding is present within the perirenal spaces. These findings are nonspecific but can indicate a genitourinary tract infection." - Rocephin stopped, started merrem 03/25, started diflucan 03/26, stopped vanc 03/27 -Follow urine culture-no growth to date -Blood culture no growth to date -D/W infectious disease recommends 2 weeks of IV meropenem through 04/08/2024 -Will make arrangements for home IV abx/PICC Elevated Ddimer -VQ scan negative for PE KERMIT- improving -IV fluids -Monitor labs in the a.m. -consulted Nephrology HTN Asthma -Continue home medications -nebulizer treatment added 40 mm fatty lesion left kidney, suspect angiomyolipoma Hepatic cyst Spondylosis lumbar spine -Follow-up outpatient DVT PPx SQ heparin Full code LOS 2 days Discharge Plan: Home Plan to discharge in: 48 Hours
--- NOTE | 2024-03-29 17:33 | PN ---
Date of Progress Note: 03/29/2024 Subjective: The patient was admitted to the hospital with pyelonephritis and acute kidney injury. T he patient's, after hydration, kidney function started being improving. The patient feeling much bet ter. Physical Examination: Vital Signs: Blood pressure 138/60, pulse of 57, afebrile. Chest: Clear to auscultation. Heart: S1, S2. Regular. Abdomen: Soft, nontender. Extremities: No edema. Neurologic: Alert. No focality. Laboratory Data: Hemoglobin 8.6. Sodium 142, potassium 4.3, bicarb 22, BUN 21, creatinine 1.2, GFR of 48, calcium 7.9, phosphorus 3.2, magnesium of 2. Iron saturation of 23, ferritin of 459. Urine c ulture is still negative. Current Medications: The patient on include: 1. Meropenem. 2. Zetia. 3. Atorvastatin. 4. Bystolic. 5. Citalopram. 6. Zofran. 7. Pantoprazole. Assessment And Plan: 1. Acute kidney injury secondary to prerenal/toxic acute tubular necrosis, recovered normal volume, k eep holding IV fluid, continue antibiotic. 2. Hypertension, controlled optimal. 3. Iron deficiency anemia with the presence of mild infection. I will be okay to start IV iron. 4. Hypomagnesemia, status post supplement, resolved. 5. Hypokalemia, status post supplement, resolved. 6. Pyelonephritis. Continue current treatment. We will follow up with primary. PATRIC Voice ID: [id number] Report ID: [id number]
--- NOTE | 2024-03-29 17:33 | PN ---
Subjective: The patient lying in bed. by the bedside. Not in any acute distress. Denies a ny headache, nausea, vomiting, chest pain, abdominal pain, constipation, or diarrhea. Able to tolera te antibiotic without any problems. Objective: Vital Signs: Temperature 98, pulse 53, respirations 16, blood pressure 168/69. Lungs: Clear to auscultation. Heart: S1, S2. Regular. Abdomen: Soft. Bowel sounds present. Extremities: No edema. Laboratory Data: Shows WBC 8.9, hemoglobin 8.6, platelets 271. Chemistry shows BUN of 21, creatinin e 1.24. Assessment And Plan: Pyelonephritis, improving. Continue current treatment with meropenem total of 2 weeks. Leukocytosis has subsided. Anemia of chronic disease. Continue supportive care and monito r signs of infection with WBC and fever trend. NF/MODL Voice ID: [id number] Report ID: [id number]
--- NOTE | 2024-03-30 05:53 | RAD REPORT ---
EXAM: XR Chest, 1 View CLINICAL HISTORY: PICC LINE PLACEMENT TECHNIQUE: Frontal view of the chest. COMPARISON: No relevant prior studies available. FINDINGS: Lungs: Hazy bibasilar opacities. Pleural space: Blunting of the costophrenic angles bilaterally. No pneumothorax. Heart: Unremarkable. No cardiomegaly. Mediastinum: Unremarkable. Normal mediastinal contour. Bones/joints: Multilevel spondylosis. No acute fracture. Vasculature: Thoracic aortic atherosclerosis. Tubes, lines and devices: Right upper extremity PICC tip projects over the mid superior vena cava. IMPRESSION: 1. Right upper extremity PICC tip projects over the mid superior vena cava. 2. Hazy bibasilar opacities (atelectasis and/or infiltrate). Possible small bilateral pleural effus ions. Electronically signed by: Nicole Espinoza MD 03/30/2024 01:26 AM [facility] Due to temporary technical issues with the PACS/Ofuz reporting system, reports are being lilly d by the in-house radiologist without review as a courtesy to ensure prompt reporting the interpreting radiologist is fully responsible for the content of the report. Transcribed Date/Time: 03/30/2024 5:53 AM
[2024-03-30 06:38] LABS: Hematocrit 25.4 % (36.0-45.0); Hemoglobin 8.5 g/dL (12.0-15.0); MCH 28.8 pg (27.0-35.0); MCHC 33.6 g/dL (32.0-36.0); MCV 85.8 fL (80-100); MPV 8.1 fL (7.6-11.3); Platelets 309 thou/uL (152-406); RBC Red Blood Cell Count 2.96 M/uL (3.86-4.86)
[2024-03-30 09:04] VITALS: O2SAT 96
[2024-03-30] MEDS: Meropenem 1,000 MG in NA CHLORIDE 0.9% 100 ML IV SCH (16:21)
--- NOTE | 2024-03-30 16:30 | P.PN ---
Date of Service: 03/30/24 Subjective Symptoms improving Acute events overnight awaiting HH being setup for home abx ROS 10 point ROS as noted above, otherwise negative Physical Exam General: Alert and oriented x4, NAD Neck: Supple, JVD not distended Respiratory: Clear to auscultation bilaterally, Normal air movement, on RA Cardiovascular: No edema Capillary refill: <2 Seconds Gastrointestinal: normal Active bowel sounds, Soft on palpation, nontender Musculoskeletal: No clubbing Integumentary: No rashes Neurological: Normal speech, Normal tone Vitals Reviewed Problem list Sepsis secondary to right pyelonephritis Leukocytosis- improved Febrile KERMIT HTN Asthma 40 mm fatty lesion left kidney, suspect angiomyolipoma Hepatic cyst Spondylosis lumbar spine Plan Sepsis secondary to right pyelonephritis Febrile Leukocytosis- improved -CT abd/pelvis reports "Stranding is present adjacent to the renal pelves and ureters bilaterally. Stranding is present within the perirenal spaces. These findings are nonspecific but can indicate a genitourinary tract infection." - Rocephin stopped, started merrem 03/25, started diflucan 03/26, stopped vanc 03/27 -Follow urine culture-no growth to date -Blood culture no growth to date -D/W infectious disease recommends 2 weeks of IV meropenem through 04/08/2024 -Will make arrangements for home IV abx/PICC -awaiting insurance to approve HH Elevated Ddimer -VQ scan negative for PE KERMIT- improving -IV fluids -Monitor labs in the a.m. -consulted Nephrology HTN Asthma -Continue home medications -nebulizer treatment added 40 mm fatty lesion left kidney, suspect angiomyolipoma Hepatic cyst Spondylosis lumbar spine -Follow-up outpatient DVT PPx SQ heparin Full code LOS 2 days Discharge Plan: Home Plan to discharge in: 48 Hours
--- NOTE | 2024-03-30 21:55 | PN ---
Date of Progress Note: 03/30/2024 Subjective: The patient was admitted to the hospital with acute kidney injury secondary to toxic ATN secondary to UTI. The patient after treatment kidney function normalized. The patient is feeling w ell. Physical Examination: Vital Signs: Blood pressure 123/66, pulse of 53. Chest: Clear to auscultation. Heart: S1, S2. Regular. Abdomen: Soft, nontender. Extremities: No edema. Neurologic: Alert. No focality. Laboratory Data: Hemoglobin 8.5. Sodium 141, potassium 4, bicarb 26, BUN 15, creatinine 0.9, calciu m 8.3, iron saturation 23, ferritin of 459. Current Medications: The patient is on include atorvastatin, Zetia, Bystolic, IV iron, heparin, shira lopram, Tylenol, Pantoprazole, meropenem. Assessment And Plan: 1. Acute kidney injury secondary to toxic ATN, recovered, resolved. 2. Hypertension, controlled, optimal. Continue current treatment. 3. Iron deficiency anemia. Continue IV iron. 4. UTI, responding to current treatment. We will follow up with Primary. ISABELA/IVA Voice ID: [id number] Report ID: [id number]
[2024-03-31 05:26] VITALS: BMI 32.5
[2024-03-31 05:31] LABS: Hematocrit 23.7 % (36.0-45.0); Hemoglobin 8.1 g/dL (12.0-15.0); MCH 28.5 pg (27.0-35.0); MCV 83.8 fL (80-100); MPV 7.8 fL (7.6-11.3); Platelets 391 thou/uL (152-406); RBC Red Blood Cell Count 2.83 M/uL (3.86-4.86); Red Cell Distribution Width 16.2 % (12.1-15.2)
[2024-03-31 06:00] LABS: Anion Gap 8.9 mEq/L (5.0-15.0); Potassium 3.9 mEq/L (3.5-5.1)
[2024-03-31] MEDS: POTASSIUM CL SA 10 MEQ TAB PO ONE (08:51)
[2024-03-31 08:54] VITALS: BP 161/75; TEMP 97.9
--- NOTE | 2024-03-31 09:04 | P.DS ---
Admission Date: 03/24/24 Discharge Date: 03/31/24 Disposition: ROUTINE DISCHARGE Discharge Condition: GOOD Reason for Admission: Right pyelonephritis Brief History of Present Illness: Anupama Olsen is a 68 year old female with Pmhx HTN, HLD, and asthma who presents to the ED with complaints of dysuria and abdominal pain since last week. She tried nitrofurantoin and ciprofloxacin from her doctor and an urgent care with no relief. Laboratory evaluation WBC 18.7, H&H 9.8/28.6, sodium 132, potassium 3.4, BUN/creatinine 41/1 3.03, GFR 16, serum glucose 166, UA reveals infectious process. Initial vitals Stranding is present adjacent to the renal pelves and ureters bilaterally. Stranding is present within the perirenal spaces. These findings are nonspecific but can indicate a genitourinary tract infection CT abdomen pelvis reports "Stranding is present adjacent to the renal pelves and ureters bilaterally. Stranding is present within the perirenal spaces. These findings are nonspecific but can indicate a genitourinary tract infection." Anupama will be admitted to hospitalist service for further treatment of right pyelonephritis.. Hospital Course: Problem list Sepsis secondary to right pyelonephritis Leukocytosis- improved Febrile KERMIT HTN Asthma 40 mm fatty lesion left kidney, suspect angiomyolipoma Hepatic cyst Spondylosis lumbar spine Patient was admitted to the hospital for suspected pyelonephritis, urinary tract infection. Prior to coming to the hospital she was on a short course of Macrobid followed by Cipro for about 48 hours. Her initial urine culture showed mixed coby, repeat urine culture after being treated with IV Merrem showed no growth. While on IV Merrem her symptoms have significantly improved, she did also complete a course of IV Diflucan as there was some yeast present in her urine as well. Her initial white blood cell count was 18.7, it has improved down to 7.5 at this time. Also she was admitted with an acute kidney injury initial creatinine was 3.03, it is now down to 0.96. She was found to be iron deficient with an iron level of 44, TIBC of 186, transferring to 133 and transferring saturation percent of 23.7, ferritin was 459.3. She did receive IV iron during her hospitalization. Hemoglobin at discharge is around 8.5. We also discussed the importance of having a colonoscopy performed. Blood culture showed no growth in 5 days, she was seen by infectious disease who recommends a total of 2 weeks of IV meropenem which would end on 04/08/2024. IV antibiotics have been arranged and PICC line is in place. Patient to be discharged home with home health to complete the remainder of her IV meropenem. She may continue her other home medications as previously prescribed, recommend also taking daily oral iron which may be obtained [id number]. Please follow-up with your primary care doctor 1 to 2 weeks Infectious disease also recommend that she follow-up with urology at discharge, you may call Dr. Fernandez office to schedule appointment I would also recommend following up with nephrologyDr. Patterson recheck your renal function in 2 to 3 weeks Vital Signs/Physical Exam: Temp Pulse Resp BP Pulse Ox 97.9 F 54 20 161/75 H 97 03/31/24 08:00 03/31/24 08:00 03/31/24 08:00 03/31/24 08:00 03/31/24 08:00 General: Alert, In no apparent distress, Oriented x3 HEENT: Atraumatic, PERRLA Neck: Supple, JVD not distended Respiratory: Clear to auscultation bilaterally, Normal air movement Cardiovascular: Regular rate/rhythm, Normal S1 S2 Gastrointestinal: Normal bowel sounds, No tenderness Musculoskeletal: No tenderness Integumentary: No rashes Neurological: Normal speech, Normal affect Laboratory Data at Discharge: WBC 7.60 thou/uL (4.3-10.9) 03/31/24 05:20 Hgb 8.1 g/dL (12.0-15.0) L 03/31/24 05:20 Hct 23.7 % (36.0-45.0) L 03/31/24 05:20 Plt Count 391 thou/uL (152-406) D 03/31/24 05:20 PT 12.8 SECONDS (9.4-12.5) H 03/27/24 00:30 INR 1.22 03/27/24 00:30 APTT 29.5 SECONDS (24.3-36.9) 03/24/24 13:50 Sodium 142 mEq/L (136-145) 03/31/24 05:20 Potassium 3.9 mEq/L (3.5-5.1) 03/31/24 05:20 BUN 15 mg/dL (7-18) 03/31/24 05:20 Creatinine 0.85 mg/dL (0.55-1.02) 03/31/24 05:20 Glucose 102 mg/dL (74-106) 03/31/24 05:20 Phosphorus 3.2 mg/dL (2.5-4.9) 03/29/24 05:09 Magnesium 2.0 mg/dL (1.6-2.4) 03/29/24 05:09 Total Bilirubin 0.7 mg/dL (0.2-1.0) 03/24/24 13:50 AST 15 U/L (15-37) 03/24/24 13:50 ALT 17 U/L (13-56) 03/24/24 13:50 Alkaline Phosphatase 125 U/L (45-117) H 03/24/24 13:50 Lipase 9 U/L (13-75) L 03/24/24 13:50 Home Medications: Atorvastatin Calcium 40 mg PO DAILY 03/25/24 Escitalopram [Lexapro*] 10 mg PO DAILY 03/25/24 Ezetimibe 10 mg PO DAILY 03/25/24 Nebivolol HCl 5 mg PO DAILY 03/25/24 Omeprazole 20 mg PO DAILY 03/25/24 Zolpidem Tartrate 5 mg DAILY PRN 03/25/24 Physician Discharge Instructions: Patient was admitted to the hospital for suspected pyelonephritis, urinary tract infection. Prior to coming to the hospital she was on a short course of Macrobid followed by Maura for about 48 hours. Her initial urine culture showed mixed coby, repeat urine culture after being treated with IV Merrem showed no growth. While on IV Merrem her symptoms have significantly improved, she did also complete a course of IV Diflucan as there was some yeast present in her urine as well. Her initial white blood cell count was 18.7, it has improved down to 7.5 at this time. Also she was admitted with an acute kidney injury initial creatinine was 3.03, it is now down to 0.96. She was found to be iron deficient with an iron level of 44, TIBC of 186, transferring to 133 and transferring saturation percent of 23.7, ferritin was 459.3. She did receive IV iron during her hospitalization. Hemoglobin at discharge is around 8.5. We also discussed the importance of having a colonoscopy performed. Blood culture showed no growth in 5 days, she was seen by infectious disease who recommends a total of 2 weeks of IV meropenem which would end on 04/08/2024. IV antibiotics have been arranged and PICC line is in place. Patient to be discharged home with home health to complete the remainder of her IV meropenem. She may continue her other home medications as previously prescribed, recommend also taking daily oral iron which may be obtained [id number]. Please follow-up with your primary care doctor 1 to 2 weeks Infectious disease also recommend that she follow-up with urology at discharge, you may call Dr. Fernandez office to schedule appointment I would also recommend following up with nephrologyDr. Yesenia recheck your renal function in 2 to 3 weeks Diet: Regular Activity: Ad diana Followup: John Patterson MD [ACTIVE - CAN ADMIT] - (check your renal function in 2 to 3 weeks) Reynold Whitten MD [Primary Care Provider] - 1-2 Weeks Telly Fernandez [ACTIVE - CAN ADMIT] - Time spent managing pt's care (in minutes): 45
--- NOTE | 2024-03-31 23:16 | PN ---
Date of Progress Note: 03/31/2024 Chief Complaint: Acute kidney injury due to ATN in setting of urosepsis, urinary tract infection wit h pyelonephritis. Subjective: The patient received IV fluids and renal function normalized. Serum creatinine level is at baseline. Review of Systems: Denies chest pain, palpitation. Physical Examination: Lungs: Clear to auscultation bilaterally. Heart: S1, S2. Abdomen: Soft. Extremities: No edema. Impression And Plan: 1. Acute kidney injury due to acute tubular necrosis. Renal function has improved. Monitor electrol ytes closely. Avoid nonsteroidal anti-inflammatory medication. 2. Hypertension, controlled. Continue current treatment. 3. Iron-deficiency anemia. Continue supplementation with iron. 4. Urinary tract infection, responding to current treatment. Follow up with Primary. CHESTER/IVA Voice ID: [id number] Report ID: [id number]
== END 2024-03-31 09:54 | disposition home health service (06) | DRG 871 ==
LOC: ER 12:23 → ERHOLD 16:19 → 2ND 19:37
PROVIDERS: ADMIT Internal Medicine; ATTEND Hospitalist
PROC: 0DB98ZX Excision of Duodenum, Via Natural or Artificial Opening Endoscopic, Diagnostic (ICD-10-PCS; principal; 2024-03-29)
PROC: 0DB68ZX Excision of Stomach, Via Natural or Artificial Opening Endoscopic, Diagnostic (ICD-10-PCS; 2024-03-29)
PROC: 02HV33Z Insertion of Infusion Device into Superior Vena Cava, Percutaneous Approach (ICD-10-PCS; 2024-03-30)
DX: A41.9 Sepsis, unspecified organism (principal); N17.0 Acute kidney failure with tubular necrosis; N10 Acute pyelonephritis; R65.20 Severe sepsis without septic shock; K31.7 Polyp of stomach and duodenum; E78.5 Hyperlipidemia, unspecified; I10 Essential (primary) hypertension; E87.6 Hypokalemia; D50.9 Iron deficiency anemia, unspecified; E83.42 Hypomagnesemia; J45.909 Unspecified asthma, uncomplicated; K29.70 Gastritis, unspecified, without bleeding; K76.89 Other specified diseases of liver; N28.1 Cyst of kidney, acquired; M47.896 Other spondylosis, lumbar region; K44.9 Diaphragmatic hernia without obstruction or gangrene; Z11.52 Encounter for screening for COVID-19; Z90.710 Acquired absence of both cervix and uterus
CPT/HCPCS: 36415; 36569; 71045; 74176; 78582; 80048; 80053; 81001; 82728; 82947; 83540; 83605; 83690; 83735; 84100; 84466; 85025; 85027; 85379; 85610; 85730; 87040; 87086; 87088; 87804; 87807; 87811; 93005; 94640; 96361; 96365; 96366; 96375; 99285; A9540; A9558; J0696; J1450; J1644; J2185; J2405; J2916; J3475; J7030; J7040; J7050; J7613; J7644